=== PATIENT | female | born 1995 | race Two or more races ===

== ENCOUNTER 2024-09-23 17:24 | Emergency (ER) | payer OTHER, MEDICAID ==
[~2024-09-23] VITALS: Ht 162.6 cm; Wt 54.5 kg
[2024-09-23] MEDS ORDERED: ACET500T58 PO (18:54)
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
[2024-09-23 20:29] VITALS: BP 103/64; PULSE 83; RESP 18; TEMP 98; O2SAT 96
== END 2024-09-23 20:32 | disposition home or self-care (01) ==
LOC: EDBD 17:24 → ER 17:24
DX: S60.211A Contusion of right wrist, initial encounter (principal); S20.219A Contusion of unspecified front wall of thorax, initial encounter; Z79.899 Other long term (current) drug therapy; V89.2XXA Person injured in unspecified motor-vehicle accident, traffic, initial encounter; Y93.89 Activity, other specified; Y92.488 Other paved roadways as the place of occurrence of the external cause; Y99.8 Other external cause status
CPT/HCPCS: 71046; 73110